=== PATIENT | female | born 1950 | race Caucasian/White ===

== ENCOUNTER 2017-09-05 07:49 | Day surgery (SDC) | payer MEDICARE ==
[2017-09-05] VITALS (10 sets, daily range): BP systolic 112–140; BP diastolic 56–81; PULSE 61–71; RESP 20; TEMP 97.8–97.9; O2SAT 92–93
[~2017-09-05] VITALS: Ht 160 cm; Wt 79.5 kg
[~2017-09-05 07:49] MED LIST: MMW SSP
[2017-09-05] MEDS ORDERED: ATOR10TA15 PO (08:13)
[2017-09-05] MEDS ORDERED: METF500T PO (08:13)
[2017-09-05] MEDS ORDERED: GLIM2TAB PO (08:13)
[2017-09-05] MEDS ORDERED: TYLE325T PO (08:13)
[2017-09-05] MEDS ORDERED: LISI10TA3 PO (08:13)
[2017-09-05] MEDS ORDERED: LIDOCAINE HCL 1% 20 ML VIAL ONE (08:28)
[2017-09-05] MEDS ORDERED: SODIUM CHLOR 0.9% 1000 ML IV SCH (08:45)
[2017-09-05 08:54] LABS: AUTOMATED NEUTROPHIL # 1.4 TH/MM3 (1.8-7.7); BASOPHIL % 0.6 % (0.0-2.0); EOSINOPHIL # 0.1 TH/MM3 (0-0.4); EOSINOPHIL % 3.7 % (0.0-4.0); HEMATOCRIT 38.7 % (35.0-46.0); HEMOGLOBIN 13.3 GM/DL (11.6-15.3); LYMPH % 50.3 % (9.0-44.0); MEAN CELL VOLUME 91.5 FL (80.0-100.0); MEAN CORPUSCULAR HEMOGLOBIN 31.4 PG (27.0-34.0); MEAN CORPUSCULAR HGB CONC 34.3 % (32.0-36.0); MEAN PLATELET VOLUME 10.5 FL (7.0-11.0); MONO % 10.5 % (0.0-8.0); MONOCYTE # 0.4 TH/MM3 (0-0.9); NEUT % 34.9 % (16.0-70.0); PLATELET COUNT 154 TH/MM3 (150-450); RED BLOOD COUNT 4.22 MIL/MM3 (4.00-5.30); RED CELL DISTRIBUTION WIDTH 13.8 % (11.6-17.2)
[2017-09-05] MEDS ORDERED: MIDAZOLAM HCL 2 MG/2 ML VIAL IV ONE (09:20)
--- NOTE | 2017-09-05 09:43 | PD.RAD ---
Post CT Procedure Prog Note Pre Procedure Diagnosis: (1) Hepatitis B Post Procedure Diagnosis: (1) Hepatitis B Procedure Date: Sep 05, 2017 Supervising Radiologist: Jose Alfonso Estimated blood loss: none Anesthesia: Local, Conscious Sedation Plan of Activity Patient to Unit: ROPU Patient Condition: Good See PACS Report for procedural detail/treatment Biopsy Imaging Guidance: CT Side: Left, Right Biopsy Procedure: Liver Specimen: Core Biopsy Findings: 2 cores obtained. Plan to [facility] for monitoring then discharge in 4 hours. Jose Alfonso MD Sep 05, 2017 09:43
--- NOTE | 2017-09-05 14:02 | RADRPT ---
EXAM DATE/TIME: 09/05/2017 09:25 [facility] COMPARISON: No previous studies available for comparison. INDICATIONS : Hepatitis C. SEDATION TIME: 30 minutes BIOPSY SITE: anterior MEDICATION(S): 1.) 2.5 mg midazolam (Versed) IV 2.) 100 mg fentanyl (Sublimaze) IV DEVICE(S): 1.) 18 gauge Temno core biopsy needle 9cm MEDICAL HISTORY : Hepatitis C. SURGICAL HISTORY : None. ENCOUNTER: Initial ACUITY: 1 day PAIN SCORE: 0/10 LOCATION: anterior A total of two core specimen(s) were obtained and sent to the laboratory for pathologic evaluation. PROCEDURE: 1. CT guided liver biopsy. 2. Conscious sedation with continuous EKG and oximetry monitoring. Prior to the procedure informed consent was obtained. Any appropriate prior imaging studies were rev iewed. Using automated exposure control and adjustment of the mA and/or kV according to patient size, radiat ion dose was kept as low as reasonably achievable to obtain optimal diagnostic quality images. DICOM format image data is available electronically for review and comparison. The site was prepped in a sterile fashion. Full sterile technique was used, including cap, mask, erick rile gloves and gown and a large sterile sheet. Hand hygiene and 2% chlorhexidine and/or betadine/al cohol prep was utilized per protocol for cutaneous antisepsis. The skin and subcutaneous tissues wer e infiltrated with local anesthetic solution. With CT guidance the previously identified target was localized. The liver demonstrates morphologic f eatures characteristic of cirrhosis. Biopsy was performed using the prescribed needle as above. Adeq uate hemostasis was obtained with compression at the puncture site. Follow-up CT scan reveals no hemorrhage. The patient tolerated the procedure well and there were no complications. The patient was returned to the Radiology Outpatient Unit in stable condition. CONCLUSION: Uncomplicated CT guided biopsy of the liver. Jose Alfonso MD on September 05, 2017 at 13:12 Board Certified Radiologist. This report was verified electronically.
== END 2017-09-05 14:00 | disposition home or self-care (01) ==
LOC: HRAD 07:49 → HRIP 07:51 → HRAD 14:00
PROVIDERS: ATTEND Physician Assistant Medical
DX: B18.2 Chronic viral hepatitis C (principal)
CPT/HCPCS: 47000; 77012; 85025; 88307; 88313; J2250; J3010

== ENCOUNTER 2017-12-04 05:39 | Emergency (ER) | payer MEDICARE ==
[~2017-12-04] VITALS: Ht 160 cm; Wt 79.5 kg
[~2017-12-04 05:39] MED LIST changes: +ATOR10TA15 PO; +GLIM2TAB PO; +LISI10TA3 PO; +METF500T PO; -MMW SSP; +TYLE325T PO
[2017-12-04 05:45] VITALS: BP 153/70; PULSE 74; RESP 16; TEMP 98; O2SAT 98
[2017-12-04] MEDS ORDERED: SODIUM CHLORIDE 0.9% FLUSH 10 ML FLUSH IV FLUSH PRN (06:00)
[2017-12-04] MEDS ORDERED: MORPHINE SULFATE 2 MG/ML SYRINGE IV PUSH ONE (06:00)
--- NOTE | 2017-12-04 06:04 | PD ---
HPI Chief Complaint: Back/ Neck Pain or Injury Time Seen by Provider: 05:53 Travel History International Travel<30 days: No Contact w/Intl Traveler<30days: No Traveled to known affect area: No History of Present Illness HPI 67-year-old female with history of diabetes, hypertension, hepatitis C, hyperlipidemia, tobaccoism, brought in by ambulance from home for evaluation of right flank pain and lower back pain. The patient reports that the symptoms have been going on for the last 4 days, however worsened today and woke her up from sleep. She denies trauma. Pain is described as sharp/stabbing, radiates from her right flank to her left flank to her upper left back. Pain is severe, constant, worse with movements, slightly improved with rest. She has also noted dark urine and dysuria. No fevers or chills. No paresthesias or motor deficits. No dyspnea. No history of DVT or PE. No urinary or bowel incontinence or retention. PFSH Past Medical History Cancer: No Diabetes: Yes Patient Takes Glucophage: No Endocrine: No Genitourinary: No Hepatitis: Yes (hep c) Hiatal Hernia: No Hypertension: Yes (htn) Musculoskeletal: No Neurologic: No Psychiatric: No Respiratory: No Thyroid Disease: No Past Surgical History Abdominal Surgery: Yes (gall bladder) AICD: No Cholecystectomy: Yes Joint Replacement: No Oral Surgery: Yes (extraction) Pacemaker: No Social History Alcohol Use: Yes (occassional) Tobacco Use: Yes (5-6 cigarettes per day) Substance Use: No Allergies-Medications (Allergen,Severity, Reaction): Coded Allergies: No Known Allergies (Verified Allergy, Mild, 04/21/06) Reported Meds & Prescriptions Reported Meds & Active Scripts Active Reported Epclusa 400 mg-100 mg Tablet (Sofosbuvir/Velpatasvir) 400 Mg-100 Mg Tablet Lisinopril 10 Mg Tab 10 Mg PO BID Glimepiride 2 Mg Tab 2 Mg PO DAILY Take with breakfast or first main meal Atorvastatin (Atorvastatin Calcium) 10 Mg Tab 10 Mg PO HS Metformin (Metformin HCl) 500 Mg Tab 500 Mg PO DAILY With a meal Review of Systems Except as stated in HPI: all other systems reviewed are Neg Physical Exam Narrative GENERAL: Well-developed, well-nourished, comfortable, no apparent distress. SKIN: Focused skin assessment warm/dry. No rash. HEAD: Atraumatic. Normocephalic. EYES: Pupils equal and round. No scleral icterus. No injection or drainage. ENT: Mucous membranes pink and moist. NECK: Trachea midline. No JVD. CARDIOVASCULAR: Regular rate and rhythm. No murmur appreciated. Distal pulses brisk and equal bilaterally. RESPIRATORY: No accessory muscle use. Clear to auscultation. Breath sounds equal bilaterally. GASTROINTESTINAL: Abdomen soft, nondistended. Mild diffuse tenderness without peritoneal signs. Normal bowel sounds. MUSCULOSKELETAL: No obvious deformities. No clubbing. No cyanosis. No edema. Moderate right CVA tenderness. No left CVA tenderness. Mild midline thoracolumbar spine tenderness without step-off. NEUROLOGICAL: Awake and alert. No obvious cranial nerve deficits. Motor grossly within normal limits. Normal speech. No saddle anesthesia. Great toe extension present bilaterally. Brisk patellar tendon reflexes bilaterally. PSYCHIATRIC: Appropriate mood and affect; insight and judgment normal. Data Data Last Documented VS Vital Signs Date Time Temp Pulse Resp B/P (MAP) Pulse Ox O2 Delivery O2 Flow Rate FiO2 12/04/17 06:15 98 Room Air 12/04/17 05:45 98.0 74 16 153/70 (97) Orders Orders Complete Blood Count With Diff (12/04/17 05:59) Comprehensive Metabolic Panel (12/04/17 05:59) Lipase (12/04/17 05:59) Prothrombin Time / Inr (Pt) (12/04/17 05:59) Act Partial Throm Time (Ptt) (12/04/17 05:59) Urinalysis - C+S If Indicated (12/04/17 05:59) Iv Access Insert/Monitor (12/04/17 05:59) Ecg Monitoring (12/04/17 05:59) Oximetry (12/04/17 05:59) Sodium Chloride 0.9% Flush (Ns Flush) (12/04/17 06:00) Electrocardiogram (12/04/17 05:59) Ckmb (Isoenzyme) Profile (12/04/17 05:59) Troponin I (12/04/17 05:59) Chest, Single Ap (12/04/17 05:59) Cta Thor Abd Aorta W Iv C W3d (12/04/17 ) Ct Lumb Spine W/O Contrast (12/04/17 ) Ct Thor Spine W/O Contrast (12/04/17 ) Morphine Inj (Morphine Inj) (12/04/17 06:00) Cath For Specimen (12/04/17 06:08) Labs Laboratory Tests Test 12/04/17 06:05 12/04/17 06:09 Urine Color YELLOW Urine Turbidity CLEAR Urine pH 5.0 Urine Specific [place] 1.019 Urine Protein NEG mg/dL Urine Glucose (UA) NEG mg/dL Urine Ketones NEG mg/dL Urine Occult Blood NEG Urine Nitrite NEG Urine Bilirubin NEG Urine Urobilinogen LESS THAN 2.0 MG/DL Urine Leukocyte Esterase NEG Urine RBC 1 /hpf Urine WBC 1 /hpf Urine Squamous Epithelial Cells 1 /hpf Urine Mucus FEW /lpf Microscopic Urinalysis Comment CULT NOT INDICATED White Blood Count 6.8 TH/MM3 Red Blood Count 4.53 MIL/MM3 Hemoglobin 14.0 GM/DL Hematocrit 41.7 % Mean Corpuscular Volume 92.1 FL Mean Corpuscular Hemoglobin 30.9 PG Mean Corpuscular Hemoglobin Concent 33.6 % Red Cell Distribution Width 13.7 % Platelet Count 177 TH/MM3 Mean Platelet Volume 10.2 FL Neutrophils (%) (Auto) 53.2 % Lymphocytes (%) (Auto) 37.1 % Monocytes (%) (Auto) 6.6 % Eosinophils (%) (Auto) 2.4 % Basophils (%) (Auto) 0.7 % Neutrophils # (Auto) 3.6 TH/MM3 Lymphocytes # (Auto) 2.5 TH/MM3 Monocytes # (Auto) 0.5 TH/MM3 Eosinophils # (Auto) 0.2 TH/MM3 Basophils # (Auto) 0.1 TH/MM3 CBC Comment DIFF FINAL Differential Comment Prothrombin Time 10.9 SEC Prothromb Time International Ratio 1.1 RATIO Activated Partial Thromboplast Time 25.1 SEC MDM Medical Decision Making Medical Screen Exam Complete: Yes Emergency Medical Condition: Yes Medical Record Reviewed: Yes Interpretation(s) EKG: Sinus, rate 71, normal axis, normal intervals, no acute ischemic abnormality. Differential Diagnosis Nephrolithiasis, ureterolithiasis, pyelonephritis, dissection, AAA, spinal stenosis, cord compression less likely, ACS, PE, diverticulitis, colitis Narrative Course CBC is unremarkable. UA is not suggestive of UTI. At approximately 7 AM at the end of my shift the patient was signed out to Dr Stone to follow up with the rest of the labs, imaging, and disposition. Marcos Schrader MD Dec 04, 2017 06:04
[2017-12-04 06:15] VITALS: O2SAT 98
[2017-12-04] MEDS ORDERED: LISI10TA3 PO (06:20)
[2017-12-04] MEDS ORDERED: SOFO1TAB (06:21)
[2017-12-04 06:44] LABS: BILIRUBIN, URINE NEG (NEG); BLOOD, URINE NEG (NEG); GLUCOSE,URINE NEG (NEG); KETONE, URINE NEG (NEG); MUCUS URINE FEW /lpf (OCC); NITRITE,URINE NEG (NEG); SQUAMOUS EPITHELIAL CELL URINE 1 /hpf (0-5); URINE COLOR YELLOW (YELLW/STRAW); URINE LEUKOCYTE ESTERASE NEG (NEG)
[2017-12-04 06:44] LABS: AUTOMATED NEUTROPHIL # 3.6 TH/MM3 (1.8-7.7); BASOPHIL # 0.1 TH/MM3 (0-0.2); BASOPHIL % 0.7 % (0.0-2.0); EOSINOPHIL # 0.2 TH/MM3 (0-0.4); EOSINOPHIL % 2.4 % (0.0-4.0); HEMATOCRIT 41.7 % (35.0-46.0); LYMPH % 37.1 % (9.0-44.0); LYMPHOCYTE # 2.5 TH/MM3 (1.0-4.8); MEAN CELL VOLUME 92.1 FL (80.0-100.0); MEAN CORPUSCULAR HEMOGLOBIN 30.9 PG (27.0-34.0); MEAN CORPUSCULAR HGB CONC 33.6 % (32.0-36.0); MEAN PLATELET VOLUME 10.2 FL (7.0-11.0); MONO % 6.6 % (0.0-8.0); MONOCYTE # 0.5 TH/MM3 (0-0.9); NEUT % 53.2 % (16.0-70.0); PLATELET COUNT 177 TH/MM3 (150-450); RED BLOOD COUNT 4.53 MIL/MM3 (4.00-5.30); RED CELL DISTRIBUTION WIDTH 13.7 % (11.6-17.2); WHITE BLOOD COUNT 6.8 TH/MM3 (4.0-11.0)
--- NOTE | 2017-12-04 06:49 | RADRPT ---
EXAM DATE/TIME: 12/04/2017 06:11 [facility] COMPARISON: No previous studies available for comparison. INDICATIONS : Complains of posterior chest pain. MEDICAL HISTORY : Diabetes mellitus type II. Hypertension SURGICAL HISTORY : None. ENCOUNTER: Initial ACUITY: 1 day PAIN SCORE: 10/10 LOCATION: Right Posterior chest FINDINGS: A single view of the chest demonstrates the lungs to be symmetrically aerated without evidence of mas s, infiltrate or effusion. The cardiomediastinal contours are unremarkable. Osseous structures are intact. CONCLUSION: No acute disease. Alexander Wu MD on December 04, 2017 at 6:47 Board Certified Radiologist. This report was verified electronically.
[2017-12-04 06:52] LABS: INTERNATIONAL NORMALIZED RATIO 1.1 RATIO; PROTHROMBIN TIME - PATIENT 10.9 SEC (9.8-11.6)
[2017-12-04 07:18] LABS: ALBUMIN 3.5 GM/DL (3.4-5.0); ALKALINE PHOSPHATASE 78 U/L (45-117); ALT (GPT) 20 U/L (10-53); AST (GOT) 20 U/L (15-37); BICARBONATE 30.2 MEQ/L (21.0-32.0); BLOOD UREA NITROGEN 14 MG/DL (7-18); CALCIUM 9.2 MG/DL (8.5-10.1); CHLORIDE 103 MEQ/L (98-107); CREATININE 0.69 MG/DL (0.50-1.00); GLOMERULAR FILTRATION RATE 85 ML/MIN (>89); GLUCOSE,RANDOM 136 MG/DL (74-106); SODIUM (NA) 139 MEQ/L (136-145); TOTAL BILIRUBIN ADULT 0.6 MG/DL (0.2-1.0); TOTAL PROTEIN 9.3 GM/DL (6.4-8.2); TROPONIN I LESS THAN 0.02 NG/ML (0.02-0.05)
[2017-12-04] MEDS ORDERED: IOHEXOL 350 MG/ML 10 ML VIAL (for RAD DIAG) IVCONTRAST ONE (07:50)
--- NOTE | 2017-12-04 08:41 | RADRPT ---
EXAM DATE/TIME: 12/04/2017 07:43 This report includes an Addendum and supersedes previous reports for this exam. [facility] COMPARISON: No previous studies available for comparison. INDICATIONS : Bilateral flank pain for 4 days with hematuria. IV CONTRAST: 100 cc Omnipaque 350 (iohexol) IV ; Cumulative dose for multiple exams. RADIATION DOSE: 9.15 CTDIvol (mGy) MEDICAL HISTORY : Hypertension. Diabetes SURGICAL HISTORY : Cholecystectomy. ENCOUNTER: Initial ACUITY: 4 - 6 days PAIN SCALE: 5/10 LOCATION: Bilateral flank TECHNIQUE: Volumetric scanning was performed using a multi-row detector CT scanner. The data was post processed with a variety of visualization algorithms including full volume maximum intensity projection, multi -planar sliding thin slab reformation, curved planar reformation, and surface rendering techniques. Using automated exposure control and adjustment of the mA and/or kV according to patient size, radiat ion dose was kept as low as reasonably achievable to obtain optimal diagnostic quality images. DICOM format image data is available electronically for review and comparison. FINDINGS: LUNGS: There is no consolidation or pneumothorax. No concerning pulmonary nodule is visualized. No pleural fluid is present. MEDIASTINUM: No abnormally enlarged lymph nodes by CT criteria. No axillary or hilar abnormalities are identified. Atherosclerotic calcification of the coronary arteries. ABDOMEN: The liver and spleen are free of focal defects. The pancreas demonstrates no abnormality. Patient is status post cholecystectomy with an enlarged CBD measuring 1.1 cm in the pancreatic head characterist ic of a reservoir effect. The adrenal glands are normal. The kidneys demonstrate no evidence of solid renal mass or hydronephrosis. Nonobstructing 2-3 mm stone in the lower pole collecting system of the right kidney. No free fluid or abdominal masses are identified. No para-aortic adenopathy is seen. PELVIS: No evidence of free fluid or pelvic mass. No abnormally enlarged inguinal or retroperitoneal lymph no gurmeet are present. The bladder is unremarkable. THORACIC AORTA: The thoracic aortic root is normal with normal branching of the great vessels. There is no evidence of aneurysm or dissection. ABDOMINAL AORTA: The aorta is normal in caliber without aneurysm or dissection. The renal arteries are patent bilater ally. The proximal celiac and superior mesenteric arteries are patent and normal in diameter. PELVIC VESSELS: The internal iliac and external iliac vessels are patent without aneurysm or stenosis. CONCLUSION: 1. Shukri abdominal aorta is normal in caliber throughout its length by aneurysmal disease. Mesenter ic and renal vessels are patent. 2. Atherosclerotic calcification of the coronary arteries. 3. 2-3 mm stone in the lower pole collecting system of the right kidney. No hydronephrosis. 4. CBD is prominent measuring 1.1 cm at the pancreatic head. This is felt to represent a reservoir ef fect associated with prior cholecystectomy. Chun Galdamez MD on December 04, 2017 at 8:22 Board Certified Radiologist. This report was verified electronically. ADDENDUM: Conclusion #1 should read " Thoracoabdominal aorta is normal in caliber throughout its length without aneurysmal disease" Chun Galdamez MD on December 04, 2017 at 8:54 Board Certified Radiologist. This report was verified electronically.
[2017-12-04 09:01] VITALS: BP 148/72; PULSE 74; RESP 17; O2SAT 96
--- NOTE | 2017-12-04 09:32 | RADRPT ---
EXAM DATE/TIME: 12/04/2017 07:43 [facility] COMPARISON: No previous studies available for comparison. INDICATIONS : Bilateral flank pain for 4 days with hematuria. IV CONTRAST: 100 cc Omnipaque 350 (iohexol) IV ; Cumulative dose for multiple exams. RADIATION DOSE: ; Reconstructed from previous dataset, no dose MEDICAL HISTORY : Hypertension. Diabetes SURGICAL HISTORY : Cholecystectomy. ENCOUNTER: Initial ACUITY: 4 - 6 days PAIN SCALE: 5/10 LOCATION: Bilateral flank TECHNIQUE: Volumetric scanning of the thoracic spine was performed. Multiplanar reconstructions in the sagittal , coronal and oblique axial planes were performed. Using automated exposure control and adjustment o f the mA and/or kV according to patient size, radiation dose was kept as low as reasonably achievable to obtain optimal diagnostic quality images. DICOM format image data is available electronically fo r review and comparison. FINDINGS: The vertebral bodies of the thoracic spine are in normal alignment without evidence of subluxation. Vertebral body height is maintained. No fractures are seen. There are endplate osteophytes anteriorl y at multiple levels. T1-T2: No disc herniation, canal stenosis, or neural foraminal stenosis. T2-T3: The thecal sac has a normal diameter. No evidence of disc bulge or protrusion. T3-T4: The thecal sac has a normal diameter. No evidence of disc bulge or protrusion. T4-T5: The thecal sac has a normal diameter. No evidence of disc bulge or protrusion. T5-T6: The thecal sac has a normal diameter. No evidence of disc bulge or protrusion. T6-T7: The thecal sac has a normal diameter. No evidence of disc bulge or protrusion. T7-T8: The thecal sac has a normal diameter. No evidence of disc bulge or protrusion. T8-T9: The thecal sac has a normal diameter. No evidence of disc bulge or protrusion. T9-T10: The thecal sac has a normal diameter. No evidence of disc bulge or protrusion. T10-T11: The thecal sac has a normal diameter. No evidence of disc bulge or protrusion. T11-T12: The thecal sac has a normal diameter. No evidence of disc bulge or protrusion. T12-L1: The thecal sac has a normal diameter. No evidence of disc bulge or protrusion. The visualized surrounding structures demonstrate no acute finding. CONCLUSION: Mild degenerative changes throughout the thoracic spine. No acute thoracic spine abnormality is ident ified. Jose Alfonso MD on December 04, 2017 at 9:26 Board Certified Radiologist. This report was verified electronically.
--- NOTE | 2017-12-04 09:36 | RADRPT ---
EXAM DATE/TIME: 12/04/2017 07:43 [facility] COMPARISON: No previous studies available for comparison. INDICATIONS : Bilateral flank pain for 4 days with hematuria. IV CONTRAST: 100 cc Omnipaque 350 (iohexol) IV ; Cumulative dose for multiple exams. RADIATION DOSE: ; Reconstructed from previous dataset, no dose MEDICAL HISTORY : Hypertension. Diabetes SURGICAL HISTORY : Cholecystectomy. ENCOUNTER: Initial ACUITY: 4 - 6 days PAIN SCALE: 5/10 LOCATION: Bilateral flank TECHNIQUE: Volumetric scanning of the lumbar spine was performed. Multiplanar reconstructions in the sagittal, coronal and oblique axial planes were performed. Using automated exposure control and adjustment of the mA and/or kV according to patient size, radiation dose was kept as low as reasonably achievable t o obtain optimal diagnostic quality images. DICOM format image data is available electronically for review and comparison. FINDINGS: Vertebral body height is maintained. No fracture or compression deformity is present. There is no ant erolisthesis or retrolisthesis. L2-L3: L3-L4: L4 Visualized paraspinous structures demonstrate no acute finding. CONCLUSION: Mild degenerative changes of the lumbar spine consisting primarily of facet arthrosis in the inferior lumbar spine. No spinal canal stenosis or neural foraminal narrowing is identified. Jose Alfonso MD on December 04, 2017 at 9:30 Board Certified Radiologist. This report was verified electronically.
[2017-12-04] MEDS ORDERED: CYCL10TA PO (09:43)
--- NOTE | 2017-12-04 09:45 | PD ---
Physical Exam Narrative GENERAL: 67-year-old female in no apparent distress SKIN: Focused skin assessment warm/dry. HEAD: Atraumatic. Normocephalic. EYES: Pupils equal and round. No scleral icterus. No injection or drainage. ENT: No nasal bleeding or discharge. Mucous membranes pink and moist. NECK: Trachea midline. CARDIOVASCULAR: Regular rate and rhythm. RESPIRATORY: No accessory muscle use. No increased effort MUSCULOSKELETAL: No obvious deformities. No clubbing. No cyanosis. NEUROLOGICAL: Awake and alert. No obvious cranial nerve deficits. Motor grossly within normal limits. Normal speech. PSYCHIATRIC: Appropriate mood and affect; insight and judgment normal. Data Data Last Documented VS Vital Signs Date Time Temp Pulse Resp B/P (MAP) Pulse Ox O2 Delivery O2 Flow Rate FiO2 12/04/17 09:01 74 17 148/72 (97) 96 Room Air 12/04/17 05:45 98.0 Orders Orders Complete Blood Count With Diff (12/04/17 05:59) Comprehensive Metabolic Panel (12/04/17 05:59) Lipase (12/04/17 05:59) Prothrombin Time / Inr (Pt) (12/04/17 05:59) Act Partial Throm Time (Ptt) (12/04/17 05:59) Urinalysis - C+S If Indicated (12/04/17 05:59) Iv Access Insert/Monitor (12/04/17 05:59) Ecg Monitoring (12/04/17 05:59) Oximetry (12/04/17 05:59) Sodium Chloride 0.9% Flush (Ns Flush) (12/04/17 06:00) Electrocardiogram (12/04/17 05:59) Ckmb (Isoenzyme) Profile (12/04/17 05:59) Troponin I (12/04/17 05:59) Chest, Single Ap (12/04/17 05:59) Cta Thor Abd Aorta W Iv C W3d (12/04/17 ) Morphine Inj (Morphine Inj) (12/04/17 06:00) Cath For Specimen (12/04/17 06:08) Ct Lumb Spine W Iv Contrast (12/04/17 ) Ct Thor Spine W Iv Contrast (12/04/17 ) Iohexol 350 Inj (Omnipaque 350 Inj) (12/04/17 07:50) Ed Discharge Order (12/04/17 09:42) Labs Laboratory Tests Test 12/04/17 06:05 12/04/17 06:09 Urine Color YELLOW Urine Turbidity CLEAR Urine pH 5.0 Urine Specific [place] 1.019 Urine Protein NEG mg/dL Urine Glucose (UA) NEG mg/dL Urine Ketones NEG mg/dL Urine Occult Blood NEG Urine Nitrite NEG Urine Bilirubin NEG Urine Urobilinogen LESS THAN 2.0 MG/DL Urine Leukocyte Esterase NEG Urine RBC 1 /hpf Urine WBC 1 /hpf Urine Squamous Epithelial Cells 1 /hpf Urine Mucus FEW /lpf Microscopic Urinalysis Comment CULT NOT INDICATED White Blood Count 6.8 TH/MM3 Red Blood Count 4.53 MIL/MM3 Hemoglobin 14.0 GM/DL Hematocrit 41.7 % Mean Corpuscular Volume 92.1 FL Mean Corpuscular Hemoglobin 30.9 PG Mean Corpuscular Hemoglobin Concent 33.6 % Red Cell Distribution Width 13.7 % Platelet Count 177 TH/MM3 Mean Platelet Volume 10.2 FL Neutrophils (%) (Auto) 53.2 % Lymphocytes (%) (Auto) 37.1 % Monocytes (%) (Auto) 6.6 % Eosinophils (%) (Auto) 2.4 % Basophils (%) (Auto) 0.7 % Neutrophils # (Auto) 3.6 TH/MM3 Lymphocytes # (Auto) 2.5 TH/MM3 Monocytes # (Auto) 0.5 TH/MM3 Eosinophils # (Auto) 0.2 TH/MM3 Basophils # (Auto) 0.1 TH/MM3 CBC Comment DIFF FINAL Differential Comment Prothrombin Time 10.9 SEC Prothromb Time International Ratio 1.1 RATIO Activated Partial Thromboplast Time 25.1 SEC Blood Urea Nitrogen 14 MG/DL Creatinine 0.69 MG/DL Random Glucose 136 MG/DL Total Protein 9.3 GM/DL Albumin 3.5 GM/DL Calcium Level 9.2 MG/DL Alkaline Phosphatase 78 U/L Aspartate Amino Transf (AST/SGOT) 20 U/L Alanine Aminotransferase (ALT/SGPT) 20 U/L Total Bilirubin 0.6 MG/DL Sodium Level 139 MEQ/L Potassium Level 4.1 MEQ/L Chloride Level 103 MEQ/L Carbon Dioxide Level 30.2 MEQ/L Anion Gap 6 MEQ/L Estimat Glomerular Filtration Rate 85 ML/MIN Total Creatine Kinase 51 U/L Troponin I LESS THAN 0.02 NG/ML Lipase 150 U/L MDM Supervised Visit with SUKHJINDER: No Interpretation(s) CBC & BMP Diagram 12/04/17 06:09 Total Protein 9.3 H, Albumin 3.5, Calcium Level 9.2, Alkaline Phosphatase 78, Aspartate Amino Transf (AST/SGOT) 20, Alanine Aminotransferase (ALT/SGPT) 20, Total Bilirubin 0.6 Last 24 hours Impressions Chest X-Ray 12/04/17 0559 Signed Impressions: Service Date/Time: November 06:11 - CONCLUSION: No acute disease. Alexander Wu MD Thoracic Spine CT 12/04/17 0000 Signed Impressions: Service Date/Time: , December 04, 2017 07:43 - CONCLUSION: Mild degenerative changes throughout the thoracic spine. No acute thoracic spine abnormality is identified. Jose Alfonso MD Lumbar Spine CT 12/04/17 0000 Signed Impressions: Service Date/Time: November 07:43 - CONCLUSION: Mild degenerative changes of the lumbar spine consisting primarily of facet arthrosis in the inferior lumbar spine. No spinal canal stenosis or neural foraminal narrowing is identified. Jose Alfonso MD Aorta CTA 12/04/17 0000 Signed Impressions: Service Date/Time: November 07:43 - CONCLUSION: 1. Shukri abdominal aorta is normal in caliber throughout its length by aneurysmal disease. Mesenteric and renal vessels are patent. 2. Atherosclerotic calcification of the coronary arteries. 3. 2-3 mm stone in the lower pole collecting system of the right kidney. No hydronephrosis. 4. CBD is prominent measuring 1.1 cm at the pancreatic head. This is felt to represent a reservoir effect associated with prior cholecystectomy. Chun Galdamez MD ADDENDUM : Conclusion #1 should read Thoracoabdominal aorta is normal in caliber throughout its length without aneurysmal disease Chun Galdamez MD Narrative Course Signed over to me to follow CTs and likely discharge. CT without emergent process. Patient denies any new complaints, all questions answered. Patient knows that follow up is incumbent on them and to return to the emergency room immediately if new or worsening symptoms develop. Patient given strict return precautions, vitals reviewed and are normal, agrees to further workup as an outpatient. Diagnosis Primary Impression: Right flank pain Patient Instructions: General Instructions Additional Instruction: return as needed, follow with primary this week, motrin with food as needed Med/Other Pt SpecificInfo: Prescription(s) given Scripts Cyclobenzaprine (Flexeril) 10 Mg Tab 10 MG PO HS Y for PAIN SCALE 1 TO 10, #14 TAB 0 Refills Prov: Paige Stone MD 12/04/17 Disposition: 01 DISCHARGE HOME Condition: Stable Paige Stone MD Dec 04, 2017 09:45
--- NOTE | 2017-12-04 18:45 | EKG ---
Date Performed: 12/04/2017 Time Performed: 06:06:38 PTAGE: 67 years EKG: Sinus rhythm NORMAL ECG NO PREVIOUS TRACING DOCTOR: Davis Holloway Interpretating Date/Time 12/04/2017 18:41:47
== END 2017-12-04 10:41 | disposition home or self-care (01) ==
LOC: NEPC 05:39
DX: R10.9 Unspecified abdominal pain (principal); E11.9 Type 2 diabetes mellitus without complications; E78.5 Hyperlipidemia, unspecified; I10 Essential (primary) hypertension; I25.10 Atherosclerotic heart disease of native coronary artery without angina pectoris; B19.20 Unspecified viral hepatitis C without hepatic coma; F17.210 Nicotine dependence, cigarettes, uncomplicated; M54.5 Low back pain; Z79.84 Long term (current) use of oral hypoglycemic drugs
CPT/HCPCS: 71045; 71275; 72129; 72132; 74174; 80053; 81001; 82550; 83690; 84484; 85025; 85610; 85730; 93005; 96374; 99285; J2270; P9612; Q9967